=== PATIENT | female | born 1990 | race Caucasian/White ===

== ENCOUNTER 2022-01-30 06:00 | Inpatient (IN) | payer BC ==
[~2022-01-30] VITALS: Ht 62 cm; Wt 76.4 kg
[2022-01-30] VITALS (68 sets, daily range): BP systolic 97–147; BP diastolic 53–85
[~2022-01-30 06:00] MED LIST: FAMO40TA6 PO
--- NOTE | 2022-01-30 07:23 | History & Physical-OB ---
OB - Chief Complaint & HPI Date/Time Date of Admission: Date of Admission: Jan 30, 2022 at 06:43 Date seen by a Provider: Jan 30, 2022 Time Seen by a Provider: 07:20 Chief Complaint/History OB-Reason for Admission/Chief: Induction of Labor Hx : 2 Hx Para: 2 Expected Date of Delivery: Jan 30, 2022 Gestational Age in Weeks: 39 Gestational Age in Days: 5 Indication for induction: maternal discomfort Admission Nurse Assessment Rev: Yes History of Labs A pos GBS neg Allergies and Home Medications Allergies Coded Allergies: No Known Drug Allergies (Unverified , 05/16/13) Patient Home Medication List Home Medication List Reviewed: Yes Famotidine (Pepcid) 40 Mg Tablet, 1 EACH PO DAILY, (Reported) Entered as Reported by: MICHOACANO BONILLA on 05/14/132228 OB - History Hx of Present Care: Yes Ultrasounds: Normal mid trimester US Obstetrical Complications: None Medical Complications: None Delivery History Adverse Rxn to Tranfusion: No Patient Past Medical History n/a Immunizations Tetanus Booster (TDap): Less than 5yrs OB - Admission Exam Physical Exam HEENT: NCAT Heart: Rhythm Normal Lungs: Clear Abdomen: Gravid Extremities: Normal Reflexes: Normal Cervical Dilatation: 2cm Effacement: 75% Station: -1 Membranes: Intact Heart Rate: 130's Accelerations: Accelerations Present Decelerations: No Decelerations Short Term Variability: Present Mcc Variability: Average (6-25) Contractions on Admission: 6-10 Minutes Apart Intensity: Mild OB - Assessment/Plan/Diagnosis Assessment Assessment: induction of labor Admission Dx 31 yo @ 39 weeks IOL TOLAC GBS neg Admission Status: Inpatient Order (span 2 midnights) Reason for Inpatient Admission: 39 week IOL Plan Plan: Induction Induction Method: CHAGO BLACK DO Jan 30, 2022 07:22
[2022-01-30] MEDS ORDERED: D5 LR IV SOLUTION 1,000 ML IV SCH (07:30)
[2022-01-30] MEDS ORDERED: OXYTOCIN PRE-MIX DRIP 500 ML IV SCH (07:30)
[2022-01-30] MEDS ORDERED: MINERAL OIL 30 ML UDC TOP PRN (07:30)
[2022-01-30 08:07] LABS: BASOPHILS % (AUTO) 0 % (0-10); EOSINOPHILS # (AUTO) 0.3 10^3/uL (0.0-0.3); EOSINOPHILS % (AUTO) 3 % (0-10); HEMATOCRIT 36 % (35-52); HEMOGLOBIN 12.5 g/dL (11.5-16.0); LYMPHOCYTES # (AUTO) 3.1 10^3/uL (1.0-4.0); LYMPHOCYTES % (AUTO) 31 % (12-44); MEAN CORPUSCULAR HEMOGLOBIN 33 pg (25-34); MEAN CORPUSCULAR HGB CONC 35 g/dL (32-36); MEAN CORPUSCULAR VOLUME 94 fL (80-99); MONOCYTES # (AUTO) 0.8 10^3/uL (0.0-1.0); MONOCYTES % (AUTO) 8 % (0-12); NEUTROPHILS # (AUTO) 5.7 10^3/uL (1.8-7.8); NEUTROPHILS % (AUTO) 57 % (42-75); PLATELET COUNT 185 10^3/uL (130-400)
[2022-01-30] MEDS ORDERED: fentaNYL 2 mcg/ml BUPIVA 0.125 100 ML ONE (08:43)
[2022-01-30] MEDS: fentaNYL 2 mcg/ml BUPIVA 0.125 100 ML EPI SCH ×2 (09:04→15:57)
[2022-01-30] MEDS ORDERED: ONDANSETRON 4 MG/2 ML (SDV) Z0FRAN IV PRN (09:30)
[2022-01-30] MEDS ORDERED: LACTATED RINGERS 1,000 ML IV SCH (09:30)
[2022-01-30] MEDS ORDERED: METOCLOPRAMIDE INJ 10 MG/2 ML (REGLAN) IV PRN (09:30)
[2022-01-30] MEDS ORDERED: diphenhydrAMINE 50 MG/ML INJ (BENADRYL) IV PRN (09:30)
[2022-01-30] MEDS ORDERED: NALOXONE 0.4 MG/ML 1 ML (NARCAN) VIAL IV PRN ×3 (09:30→18:15)
[2022-01-30] MEDS ORDERED: FLU QUADRIvalent (6 months+) 60 mcg/0.5 ml 2022-23 (Fluzone) IM ONE (10:00)
[2022-01-30] MEDS ORDERED: LIDOCAINE PF 2% 5 ML (XYLOCAINE) VIAL ONE (13:54)
[2022-01-30] MEDS ORDERED: fentaNYL INJ 100 MCG/2 ML AMP ONE (13:54)
[2022-01-30] MEDS ORDERED: CATHETER FLUSH 10 ML SYR IV SCH ×2 (14:00→22:00)
[2022-01-30] MEDS ORDERED: LIDOCAINE/EPI 2% 1:200,00 (XYLOCAINE) 10 ML VIAL ONE (17:30)
[2022-01-30] MEDS ORDERED: HYDROcodone/APAP 5 MG/325 MG (LORTAB) TAB PO PRN (18:15)
[2022-01-30] MEDS ORDERED: DIBUCAINE 1% OINTMENT 30 GM TUBE TOP PRN (18:15)
[2022-01-30] MEDS ORDERED: BENZOCAINE/MENTHOL (DERMOPLAST) 56 ML CAN TP PRN (18:15)
[2022-01-30] MEDS ORDERED: MEASLES,MUMPS,RUBELLA 1 EA INJ SQ ONE (18:15)
[2022-01-30] MEDS ORDERED: WITCH HAZEL(TUCKS) 40 EA JAR TOP PRN (18:15)
[2022-01-30] MEDS ORDERED: TETANUS,DIPTH,PERTUSS P/F (BOOSTRIX) 0.5 ML VIAL IM ONE (18:15)
--- NOTE | 2022-01-30 18:20 | OB Labor & Delivery Record ---
L&D History Date of Service Date of Service: Jan 30, 2022 History Expected Date of Delivery: Jan 30, 2022 Gestational Age in Weeks: 39 Hx : 2 Hx Para: 2 Complications Events: Routine care Operative Indications (Cesarea: N/A-Vaginal Delivery Intrapartal Events: None L&D Stage1 Stage One Onset of Labor - Date: Jan 30, 2022 Monitors and Tracing Monitor Mode: Internal Heart Rate: 120 Monitor Accelerations: Uniform Monitor Decelerations: Variable Station: 0 Senior Care Variability: Average (6-10) Short Term Variability: Present Presentation: Vertex Vital Signs VS - Last 72 Hours, by Label 01/30/22 01/30/22 01/30/22 01/30/22 07:30 07:30 08:20 08:20 Temp 35.8 35.8 36.4 Pulse 97 97 77 Resp 18 18 18 B/P (MAP) 126/81 (96) 113/74 (87) Pulse Ox 98 98 O2 Delivery Room Air Room Air Room Air 01/30/22 01/30/22 01/30/22 01/30/22 08:35 08:45 08:48 08:51 Pulse 73 79 91 75 Resp 18 18 18 18 B/P (MAP) 117/62 (80) 115/71 (86) 119/72 (88) 122/85 (97) Pulse Ox 99 97 100 O2 Delivery Room Air Room Air Room Air Room Air 01/30/22 01/30/22 01/30/22 01/30/22 08:54 09:00 09:10 09:15 Pulse 84 80 68 65 Resp 18 18 18 18 B/P (MAP) 115/67 (83) 113/67 (82) 117/72 (87) 109/65 (80) Pulse Ox 99 99 97 97 O2 Delivery Room Air Room Air Room Air Room Air 01/30/22 01/30/22 01/30/22 01/30/22 09:20 09:25 09:30 09:35 Pulse 68 66 60 71 Resp 18 18 18 18 B/P (MAP) 112/66 (81) 108/68 (81) 110/67 (81) 105/63 (77) Pulse Ox 97 99 99 98 O2 Delivery Room Air Room Air Room Air Room Air 01/30/22 01/30/22 01/30/22 01/30/22 09:40 09:45 09:50 09:55 Pulse 65 61 64 74 Resp 18 18 18 18 B/P (MAP) 113/67 (82) 111/63 (79) 110/67 (81) 112/70 (84) Pulse Ox 98 98 99 98 O2 Delivery Room Air Room Air Room Air Room Air 01/30/22 01/30/22 01/30/22 01/30/22 10:00 10:05 10:10 10:15 Temp 36.3 Pulse 63 69 67 72 Resp 18 18 18 18 B/P (MAP) 111/68 (82) 112/66 (81) 116/71 (86) 110/66 (81) Pulse Ox 99 98 99 99 O2 Delivery Room Air Room Air Room Air Room Air 01/30/22 01/30/22 01/30/22 01/30/22 10:30 10:45 11:00 11:15 Temp 36.1 Pulse 70 67 79 63 Resp 18 18 18 18 B/P (MAP) 126/73 (90) 117/69 (85) 112/72 (85) 110/66 (81) Pulse Ox 99 99 99 99 O2 Delivery Room Air Room Air Room Air Room Air 01/30/22 01/30/22 01/30/22 01/30/22 11:30 11:45 12:00 12:15 Temp 35.8 Pulse 57 60 60 61 Resp 18 18 18 18 B/P (MAP) 116/71 (86) 118/78 (91) 127/60 (82) 116/72 (87) Pulse Ox 99 100 100 100 O2 Delivery Room Air Room Air Room Air Room Air 01/30/22 01/30/22 01/30/22 01/30/22 12:30 12:45 13:00 13:15 Temp 35.9 Pulse 59 59 65 63 Resp 18 18 18 18 B/P (MAP) 118/71 (87) 112/70 (84) 126/80 (95) 126/75 (92) Pulse Ox 100 100 99 98 O2 Delivery Room Air Room Air Room Air Room Air 01/30/22 01/30/22 01/30/22 01/30/22 13:30 13:45 13:55 14:00 Temp 35.9 Pulse 63 59 58 69 Resp 18 18 18 18 B/P (MAP) 111/68 (82) 109/69 (82) 111/72 (85) 106/68 (81) Pulse Ox 100 100 99 99 O2 Delivery Room Air Room Air Room Air Room Air 01/30/22 01/30/22 01/30/22 01/30/22 14:03 14:06 14:09 14:12 Pulse 80 80 69 72 Resp 18 18 18 18 B/P (MAP) 104/78 (87) 106/61 (76) 106/64 (78) 103/63 (76) Pulse Ox 98 98 97 97 O2 Delivery Room Air Room Air Room Air Room Air 01/30/22 01/30/22 01/30/22 01/30/22 14:15 14:18 14:21 14:24 Pulse 74 69 83 62 Resp 18 18 18 18 B/P (MAP) 102/64 (77) 109/68 (82) 97/61 (73) 107/62 (77) Pulse Ox 97 97 97 97 O2 Delivery Room Air Room Air Room Air Room Air 01/30/22 01/30/22 01/30/22 01/30/22 14:27 14:30 14:45 15:00 Pulse 68 83 66 65 Resp 18 18 18 18 B/P (MAP) 98/53 (68) 99/61 (74) 108/68 (81) 105/67 (80) Pulse Ox 99 99 98 99 O2 Delivery Room Air Room Air Room Air Room Air 01/30/22 01/30/22 01/30/22 01/30/22 15:15 15:30 15:45 16:00 Temp 36.0 Pulse 68 68 77 78 Resp 18 18 18 18 B/P (MAP) 100/59 (73) 112/60 (77) 113/68 (83) 121/72 (88) Pulse Ox 99 100 100 100 O2 Delivery Room Air Room Air Room Air Room Air 01/30/22 01/30/22 16:15 16:30 Temp 35.9 Pulse 71 87 Resp 18 18 B/P (MAP) 127/74 (91) 127/74 (91) Pulse Ox 100 100 O2 Delivery Room Air Room Air Rupture of Membranes Spontaneous Ruture of Membrane: No Amniotic Membrane Rupture Time: 0815 Amniotic Membrane Fluid Desc.: Clear Induction/Anesthesia Epidural Cath Placement - Time: 0856 Progress/Notes Patient admitted for TOLAC, arom and pitocin given to max dose of 6 mu, she received an epidural and progressed to complete and + 2 station. L&D Stage2 Stage Two Stage II Date: Jan 30, 2022 Monitors and Tracing Monitor Mode: Internal Heart Rate: 120 Monitor Decelerations: Variable Senior Care Variability: Average (6-10) Short Term Variability: Present Position: Right Occiput Anterior Signs of Distress by FHT Signs of Distress heart rate dropped with each push, but at + 3 station there was a drop to the 50s at which point I quickly applied the kiwi on the flexion point and expedited delivery with gentle extension over intact perineum. Vacuum immediately released after delivery of head. Tight nuchal reduced x 1. Cord Descript/Complications Cord Vessel Description: 3 Vessels Delivery Type Delivery Method: Spontaneous Vaginal Episiotomy/Perineal Laceration Laceraction(s)/Extensions: Yes Episiotomy Description: Vaginal Extension/lac, 2nd degree Degree (describe repair) vaginal laceration repaired using 3-0 rapide in usual fashion. Condition of Infant Delivery 1 minute Comment: 8 5 minute Comment: 9 Notes Live female infant weight 7lbs 13 oz Condition of Condition of : Living Exam: No Observed Abnormalities Resuscitation Resuscitation: N/A - Spontaneous Resp L&D Stage3 Stage Three Stage III Date: Jan 30, 2022 Pictocin Pitocin Administration mu/min: 6 Pitocin ml/hr: 6 Pitocin Administration Comment: 30 mu wide open after delivery of placenta Placenta Delivery Placenta Delivery: Spontaneous Delivery Summary Summary Estimated blood loss (mL): 350 Attending at delivery: Chago Rodney DO Condition of Delivery Examined: Cervix Examined, Uterus Explored Post Hemorrhage: No Condition of Mother stable Condition of Infant (s) stable CHAGO RODNEY DO Jan 30, 2022 18:20
[2022-01-30] MEDS: OXYTOCIN PRE-MIX DRIP 500 ML IV SCH ×2 (18:21→19:00)
[2022-01-30] MEDS ORDERED: BENZ78AE5 TP (18:22)
[2022-01-30] MEDS ORDERED: DIBU30OI TOP (18:22)
[2022-01-30] MEDS ORDERED: ACHD5005 PO (18:22)
[2022-01-30] MEDS ORDERED: IBUP-844 PO (18:22)
[2022-01-30] MEDS ORDERED: DOCU100C37 PO (18:22)
[2022-01-30] MEDS ORDERED: FERR325T24 PO (18:22)
--- NOTE | 2022-01-30 18:23 | Discharge Inst-Women's Service ---
Discharge Inst-Women's Serv Depart Medication/Instructions New, Converted or Re-Newed RX: Transmitted to Pharmacy Final Diagnosis PPD 1 VAVD Problems Reviewed?: Yes Consults/Follow Up Additional Follow Up: Yes Orders/Referrals Dr. Rodney in 6 weeks Activity Activity: Activity as Tolerated Driving Instructions: No Driving for 1 Week NO SMOKING: NO SMOKING Nothing Inside Vagina: No Douching, No Moca, No Tampons Diet Discharge Diet: No Restrictions Symptoms to Report to : Bleeding Excessive, Pain Increased, Fever Over 101 Degrees F, Vaginal Bleeding Increase, Questions/Concerns For Any Problems or Questions: Contact Your Physician CHAGO RODNEY DO Jan 30, 2022 18:23
[2022-01-30] MEDS: DOCUSATE SODIUM 100 MG (COLACE) CAP PO SCH (21:17)
[2022-01-30] MEDS: IBUPROFEN 600 MG (MOTRIN) TAB PO SCH (21:17)
[2022-01-31 00:05] VITALS: BP 111/56
[2022-01-31 03:41] VITALS: BP 101/62
[2022-01-31] MEDS: IBUPROFEN 600 MG (MOTRIN) TAB PO SCH ×3 (03:41→14:53)
[2022-01-31 06:29] LABS: BASOPHILS % (AUTO) 0 % (0-10); EOSINOPHILS # (AUTO) 0.2 10^3/uL (0.0-0.3); EOSINOPHILS % (AUTO) 2 % (0-10); HEMATOCRIT 32 % (35-52); HEMOGLOBIN 10.9 g/dL (11.5-16.0); LYMPHOCYTES # (AUTO) 2.4 10^3/uL (1.0-4.0); LYMPHOCYTES % (AUTO) 17 % (12-44); MEAN CORPUSCULAR HEMOGLOBIN 33 pg (25-34); MEAN CORPUSCULAR HGB CONC 34 g/dL (32-36); MEAN CORPUSCULAR VOLUME 96 fL (80-99); MEAN PLATELET VOLUME 11.7 fL (9.0-12.2); MONOCYTES # (AUTO) 0.9 10^3/uL (0.0-1.0); MONOCYTES % (AUTO) 6 % (0-12); NEUTROPHILS # (AUTO) 10.6 10^3/uL (1.8-7.8); NEUTROPHILS % (AUTO) 75 % (42-75); PLATELET COUNT 138 10^3/uL (130-400); WHITE BLOOD COUNT 14.2 10^3/uL (4.3-11.0)
[2022-01-31] MEDS ORDERED: PRENATAL VITAMIN 1 EA TAB PO SCH (07:00)
[2022-01-31 08:00] VITALS: BP 112/65
[2022-01-31] MEDS: DOCUSATE SODIUM 100 MG (COLACE) CAP PO SCH (08:05)
[2022-01-31] MEDS ORDERED: FERROUS SULF 325 MG (IRON) TAB PO SCH (09:00)
--- NOTE | 2022-01-31 11:29 | Postpartum Progress Note ---
Note Note Day # 1 Subjective: Patient is without complaints. Ambulating, voiding. Tolerating a regular diet without nausea or vomiting. Normal lochia. Pain is well controlled with oral pain medications. Physical Exam: General - Alert and oriented, no apparent distress Abdomen - Soft, appropriately tender to palpation, non-distended, fundus firm at umbilicus Extremities - no edema, negative Flip's bilaterally Assessment: Post- day # 1, status post Recovering well, hemodynamically stable Acute blood loss anemia Plan: Routine care. Encourage breast feeding. Encourage ambulation. Ferrous sulfate supplementation. Plan for discharge today Vitals - Labs Vital Signs - I&O Vital Signs Date Time Temp Pulse Resp B/P (MAP) Pulse Ox O2 Delivery O2 Flow Rate FiO2 01/31/22 08:00 36.3 74 18 112/65 (81) 98 Room Air 01/31/22 03:41 36.1 64 18 101/62 (75) 99 Room Air 01/31/22 00:05 36.3 80 18 111/56 (74) 98 Room Air 01/30/22 20:40 36.7 73 18 106/71 (83) Room Air 01/30/22 20:10 96 18 104/65 (78) Room Air 01/30/22 19:33 36.6 90 18 113/64 (80) Room Air 01/30/22 19:15 80 18 104/54 (71) Room Air 01/30/22 19:02 69 18 107/59 (75) Room Air 01/30/22 18:45 80 18 113/57 (75) Room Air 01/30/22 18:30 80 18 111/54 (73) Room Air 01/30/22 18:00 36.3 74 18 147/80 (102) Room Air 01/30/22 17:30 74 18 122/58 (79) Room Air 01/30/22 17:15 70 18 125/59 (81) Room Air 01/30/22 17:00 86 18 115/74 (88) 100 Room Air 01/30/22 16:45 103 18 144/72 (96) 98 Room Air 01/30/22 16:30 35.9 87 18 127/74 (91) 100 Room Air 01/30/22 16:15 71 18 127/74 (91) 100 Room Air 01/30/22 16:00 78 18 121/72 (88) 100 Room Air 01/30/22 15:45 77 18 113/68 (83) 100 Room Air 01/30/22 15:30 36.0 68 18 112/60 (77) 100 Room Air 01/30/22 15:15 68 18 100/59 (73) 99 Room Air 01/30/22 15:00 65 18 105/67 (80) 99 Room Air 01/30/22 14:45 66 18 108/68 (81) 98 Room Air 01/30/22 14:30 83 18 99/61 (74) 99 Room Air 01/30/22 14:27 68 18 98/53 (68) 99 Room Air 01/30/22 14:24 62 18 107/62 (77) 97 Room Air 01/30/22 14:21 83 18 97/61 (73) 97 Room Air 01/30/22 14:18 69 18 109/68 (82) 97 Room Air 01/30/22 14:15 74 18 102/64 (77) 97 Room Air 01/30/22 14:12 72 18 103/63 (76) 97 Room Air 01/30/22 14:09 69 18 106/64 (78) 97 Room Air 01/30/22 14:06 80 18 106/61 (76) 98 Room Air 01/30/22 14:03 80 18 104/78 (87) 98 Room Air 01/30/22 14:00 69 18 106/68 (81) 99 Room Air 01/30/22 13:55 58 18 111/72 (85) 99 Room Air 01/30/22 13:45 59 18 109/69 (82) 100 Room Air 01/30/22 13:30 35.9 63 18 111/68 (82) 100 Room Air 01/30/22 13:15 63 18 126/75 (92) 98 Room Air 01/30/22 13:00 65 18 126/80 (95) 99 Room Air 01/30/22 12:45 59 18 112/70 (84) 100 Room Air 01/30/22 12:30 35.9 59 18 118/71 (87) 100 Room Air 01/30/22 12:15 61 18 116/72 (87) 100 Room Air 01/30/22 12:00 60 18 127/60 (82) 100 Room Air 01/30/22 11:45 60 18 118/78 (91) 100 Room Air 01/30/22 11:30 35.8 57 18 116/71 (86) 99 Room Air I & O 01/31/22 07:00 Intake Total 2300 ml Output Total 2100 ml Balance 200 ml Labs Laboratory Tests 01/31/22 06:00: White Blood Count 14.2H, Red Blood Count 3.34L, Hemoglobin 10.9L, Hematocrit 32L , Mean Corpuscular Volume 96, Mean Corpuscular Hemoglobin 33, Mean Corpuscular Hemoglobin Concent 34, Red Cell Distribution Width 12.7, Platelet Count 138, Mean Platelet Volume 11.7, Immature Granulocyte % (Auto) 0, Neutrophils (%) (Au to) 75, Lymphocytes (%) (Auto) 17, Monocytes (%) (Auto) 6, Eosinophils (%) (Auto) 2, Basophils (%) (Auto) 0, Neutrophils # (Auto) 10.6H, Lymphocytes # (Auto) 2.4, Monocytes # (Auto) 0.9, Eosinophils # (Auto) 0.2, Basophils # (Auto) 0.0, Immature Granulocyte # (Auto) 0.1 RERE KAUFMAN APRN Jan 31, 2022 11:29
[2022-01-31 12:15] VITALS: BP 125/71
--- NOTE | 2022-01-31 12:56 | Anesthesia-Regional Post-Op ---
Regional Patient Condition Mental Status: Alert, Oriented x3 Circulation: Same as Pre-Op Headache: Absent Sensation: Full Recovery Motor Block: Absent Post Op Complications Complications None Follow Up Care/Instructions Patient Instructions None needed. Anesthesia/Patient Condition Patient is doing well, no complaints, stable vital signs, no apparent adverse anesthesia problems. No complications reported per nursing. JENNY HERNANDEZ CRNA Jan 31, 2022 12:56
[2022-01-31 16:00] VITALS: BP 123/67
[2022-01-31 18:40] VITALS: BP 123/67
== END 2022-01-31 19:35 | disposition home or self-care (01) | DRG 806 ==
LOC: LDRP 06:43
PROVIDERS: ADMIT Obstetrics & Gynecology; ATTEND Obstetrics & Gynecology
PROC: 10D07Z6 Extraction of Products of Conception, Vacuum, Via Natural or Artificial Opening (ICD-10-PCS; principal; 2022-01-30)
PROC: 0UQGXZZ Repair Vagina, External Approach (ICD-10-PCS; 2022-01-30)
PROC: 10907ZC Drainage of Amniotic Fluid, Therapeutic from Products of Conception, Via Natural or Artificial Opening (ICD-10-PCS; 2022-01-30)
DX: O26.893 Other specified pregnancy related conditions, third trimester (principal); D62 Acute posthemorrhagic anemia; Z37.0 Single live birth; Z3A.39 39 weeks gestation of pregnancy; O76 Abnormality in fetal heart rate and rhythm complicating labor and delivery; O69.81X0 Labor and delivery complicated by cord around neck, without compression, not applicable or unspecified; O70.1 Second degree perineal laceration during delivery; O34.211 Maternal care for low transverse scar from previous cesarean delivery; O90.81 Anemia of the puerperium; Z28.21 Immunization not carried out because of patient refusal
CPT/HCPCS: 36415; 85025; 86850; 86900; 86901